=== PATIENT | female | born 1990 | race Caucasian/White ===

== ENCOUNTER 2018-01-21 16:14 | Inpatient (IN) | payer OTHER ==
[~2018-01-21] VITALS: Ht 170.2 cm; Wt 98.2 kg
[2018-01-21] MEDS ORDERED: LACTATED RINGER'S 1000ML 1,000 ML IV PRN (16:48)
[2018-01-21] MEDS ORDERED: LABETALOL HCL 100 MG TAB PO ONE (17:00)
[2018-01-21 17:01] LABS: BASO % 0.2 %; BASO ABS # 0.02 K/uL (0-0.2); EOS % 0.8 %; EOS ABS # 0.08 K/uL (0-0.5); HEMATOCRIT 40.2 % (37-47); HEMOGLOBIN 14.3 g/dL (12.0-16.0); IG# 0.05 K/uL (0.00-0.02); LYMPH % 15.5 %; LYMPH ABS # 1.57 K/uL (1.2-3.4); MEAN CELL VOLUME 93.9 fL (80-100); MEAN CORPUSCULAR HEMOGLOBIN 33.4 pg (25-34); MEAN CORPUSCULAR HGB CONC 35.6 g/dl (32-36); MEAN PLATELET VOLUME 12.3 fL (7.4-10.4); MONO % 5.2 %; MONO ABS # 0.53 K/uL (0.11-0.59); NEUT % 77.8 %; NEUT ABS # 7.86 K/uL (1.4-6.5); PLATELET COUNT 215 K/uL (130-400); RED CELL DISTRIBUTION WIDTH CV 12.8 % (11.5-14.5); RED CELL DISTRIBUTION WIDTH SD 43.6 fL (36.4-46.3); WHITE BLOOD COUNT 10.11 K/uL (4.8-10.8)
[2018-01-21] MEDS ORDERED: DINOPROSTONE 10 MG INSERT PV ONE (17:15)
[2018-01-21 17:23] LABS: ALBUMIN 2.8 gm/dl (3.4-5.0); ALT/SGPT 24 U/L (12-78); AST/SGOT 25 U/L (15-37); BLOOD UREA NITROGEN 8 mg/dl (7-18); CALCIUM 8.4 mg/dl (8.5-10.1); CARBON DIOXIDE 23 mmol/L (21-32); CREATININE 0.91 mg/dl (0.60-1.20); GLUCOSE 69 mg/dl (70-99); POTASSIUM 3.8 mmol/L (3.5-5.1); SODIUM 138 mmol/L (136-145)
[2018-01-21 17:26] LABS: ALKALINE PHOSPHATASE 190 U/L (45-117); TOTAL PROTEIN 6.8 gm/dl (6.4-8.2)
[2018-01-21] MEDS ORDERED: PRENTAB26 PO (18:34)
[2018-01-21 18:38] VITALS: Ht 170.2 cm; Wt 98.2 kg
[2018-01-21] MEDS: LABETALOL HCL 100 MG TAB PO SCH ×2 (22:00→23:09)
[2018-01-21] MEDS: LACTATED RINGER'S 1000ML 1,000 ML IV SCH (23:11)
[2018-01-22] MEDS ORDERED: NURSING VERBAL MED ORDER ONE ×2 (02:15→21:00)
[2018-01-22] MEDS ORDERED: BUTORPHANOL TARTRATE 1 MG/ML VIAL IV ONE (02:30)
[2018-01-22] MEDS ORDERED: BUPIVACAINE 0.25% 30 ML VIAL ONE (02:54)
[2018-01-22] MEDS ORDERED: EpHEDrine SULFATE INJ 50 MG/ML AMP ONE (02:54)
[2018-01-22] MEDS ORDERED: FENTANYL CITRATE INJ 50 MCG/1 ML 2 ML VIAL ONE (02:55)
[2018-01-22] MEDS ORDERED: FENTANYL 2MCG/ML ROPIV 1.25MG/ML 100ML BAG ONE (02:55)
[2018-01-22] MEDS ORDERED: NALOXONE HCL INJ 1 MG in SODIUM CHLORIDE 0.9% 1000ML 1,000 ML IV PRN (04:13)
[2018-01-22] MEDS ORDERED: LACTATED RINGER'S 1000ML 500 ML IV PRN (04:13)
[2018-01-22] MEDS ORDERED: EpHEDrine SULFATE INJ 50 MG/ML AMP IV PRN (04:15)
[2018-01-22] MEDS ORDERED: NALOXONE HCL INJ 0.4 MG/1 ML VIAL/CARP IV PRN (04:15)
[2018-01-22] MEDS ORDERED: DiphenhydrAMINE HCL 50 MG/ML VIAL IV PRN (04:15)
[2018-01-22] MEDS ORDERED: FENTANYL 2MCG/ML ROPIV 1.25MG/ML 100ML BAG EPI PRN (04:15)
[2018-01-22] MEDS ORDERED: NALBUPHINE HCL INJ 10 MG/ML AMP IV PRN (04:15)
[2018-01-22] MEDS ORDERED: D5W AND LACTATED RINGERS 1,000 ML IV SCH (06:30)
[2018-01-22] MEDS: LABETALOL HCL 100 MG TAB PO SCH ×2 (07:42→20:11)
[2018-01-22] MEDS ORDERED: OXYTOCIN 30 UNITS/500ML NSS IV ONE (09:54)
[2018-01-22] MEDS: LACTATED RINGER'S 1000ML 1,000 ML IV SCH (10:04)
[2018-01-22] MEDS ORDERED: LACTATED RINGER'S 1000ML 1,000 ML IV SCH ×2 (12:34→21:15)
--- NOTE | 2018-01-22 12:40 | Anesthesia Procedure Note ---
Anesthesia Epidural Removal Nt Date & Time January 22, 2018 at 12:40 Vital Signs Pain Intensity: 0.0 Notes Mental Status: alert / awake / arousable, participated in evaluation Nausea / Vomiting: adequately controlled Pain: adequately controlled Airway Patency, RR, SpO2: stable & adequate BP & HR: stable & adequate Hydration State: stable & adequate Neuraxial Anesthesia: was administered Anesthetic Complications: no major complications apparent, pt satisfied with anesthetic care Epidural: removed without complications, with tip intact
[2018-01-22] MEDS ORDERED: HYDROCORTISONE ACETATE 25 MG SUPP PR PRN (12:45)
[2018-01-22] MEDS ORDERED: LANOLIN OINT EXT PRN (12:45)
[2018-01-22] MEDS ORDERED: MEASLES, MUMPS & RUBELLA VIRUS VIAL SQ. ONE (12:45)
[2018-01-22] MEDS ORDERED: SUPERCREAM 0.870 % 15GM JAR EXT PRN (12:45)
[2018-01-22] MEDS ORDERED: ACETAMINOPHEN 325 MG TAB PO PRN (12:45)
[2018-01-22] MEDS ORDERED: DIPHTHERIA/TETANUS/PERTUSSIS 0.5 ML SYR/VIAL IM. ONE (12:45)
[2018-01-22] MEDS ORDERED: BENZOCAINE 20% AER SPR 82.5 GM CAN EXT PRN (12:45)
--- NOTE | 2018-01-22 12:45 | Vaginal Delivery Summary ---
Vaginal Delivery Summary Delivery Note live female over intact perineum JUANJOSE Apgars 9/10. CANx3 loose removed on perineum. Delayed cord clamping followed by cord blood and spontaneous delivery of intact placenta. EBL 250 ml. Final sponge and instrument count are correct. Mom and baby stable.
[2018-01-22 16:15] VITALS: BP 126/83; PULSE 106; TEMP 36.7; O2SAT 97
[2018-01-22 20:00] VITALS: BP 137/85; PULSE 110; TEMP 36.7
[2018-01-22] MEDS: IBUPROFEN 600 MG TAB PO PRN (21:07)
[2018-01-22 23:40] VITALS: BP 123/88; PULSE 96; TEMP 37.1; O2SAT 97
[2018-01-23 03:35] VITALS: BP 136/89; PULSE 103; TEMP 37; O2SAT 99
--- NOTE | 2018-01-23 07:08 | OB/GYN Progress Note ---
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 Subjective conversation w/ patient, physical exam Ambulation: ambulating normally Voiding: no voiding problems Passing Gas: Yes Diet Tolerance: Regular Diet Lochia: Moderate Pain: 2/10 Notes: Doing well, no concerns. Pain well controlled. Tolerating regular diet. Ambulating without difficulty. Objective Vital Signs Date Time Temp Pulse Resp B/P (MAP) Pulse Ox O2 Delivery O2 Flow Rate FiO2 01/23/18 03:35 37.0 103 18 136/89 (105) 99 Room Air 01/22/18 23:40 97 Room Air 01/22/18 23:40 37.1 96 18 123/88 (100) 97 Room Air 01/22/18 20:00 36.7 110 18 137/85 (102) Room Air 01/22/18 16:15 97 Room Air 01/22/18 16:15 36.7 106 18 126/83 (97) 97 Room Air Physical Exam General Appearance: WELL-APPEARING Respiratory/Chest: chest non-tender, lungs clear Cardiovascular: regular rate, rhythm Abdomen: normal bowel sounds, soft Fundus: Firm Extremities: normal range of motion, non-tender, no calf tenderness Laboratory Results Last 24 Hours Test 01/23/18 04:44 Assessment and Plan Post- Day Number: 1 Continue Routine Care: -Continue routine care -Anticipate D/C home tomorrow AM
[2018-01-23 08:50] VITALS: BP 130/96; PULSE 99; O2SAT 99
[2018-01-23] MEDS: PRENATAL VITAMIN TAB PO SCH (08:57)
[2018-01-23] MEDS: LABETALOL HCL 100 MG TAB PO SCH ×2 (08:57→20:06)
[2018-01-23] MEDS: FERROUS SULFATE 325 MG TAB PO SCH (08:57)
[2018-01-23] MEDS: IBUPROFEN 600 MG TAB PO PRN (08:58)
[2018-01-23 09:09] LABS: HEMATOCRIT 33.4 % (37-47); HEMOGLOBIN 11.8 g/dL (12.0-16.0)
[2018-01-23 12:55] VITALS: BP 134/84; PULSE 94; TEMP 36.8; O2SAT 98
[2018-01-23 16:00] VITALS: BP 133/91; PULSE 94; TEMP 36.8
[2018-01-23] MEDS ORDERED: BISACODYL 5 MG TABEC PO SCH (20:00)
[2018-01-23 20:05] VITALS: BP 136/84; PULSE 105; TEMP 36.8
[2018-01-23 23:55] VITALS: BP 130/83; PULSE 106; TEMP 36.8
[2018-01-24] MEDS ORDERED: BISACODYL 10 MG SUPP PR PRN (07:00)
[2018-01-24] MEDS ORDERED: LBT100 PO (07:42)
--- NOTE | 2018-01-24 07:42 | OB/GYN Progress Note ---
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 Patient is seen and examined. She feels well, no complaints. Ambulating without dizziness Voiding without difficulty Tolerating regular diet with out N&V Bleeding is minimal No fever/ chills/ CP/ SOB/ N&V/ Leg pain Breast feeding without problems Date Time Temp Pulse Resp B/P (MAP) Pulse Ox O2 Delivery O2 Flow Rate FiO2 01/23/18 23:55 Room Air 01/23/18 23:55 36.8 106 18 130/83 (99) Room Air 01/23/18 20:05 36.8 105 18 136/84 (101) Room Air 01/23/18 16:00 36.8 94 16 133/91 (105) Room Air 01/23/18 16:00 Room Air 01/23/18 12:55 36.8 94 20 134/84 (101) 98 Room Air 01/23/18 08:50 99 18 130/96 (107) 99 Room Air 01/23/18 08:50 99 Room Air Last 24 Hours Test 01/23/18 08:52 Hemoglobin 11.8 g/dL Hematocrit 33.4 % PE: General: Alert, orientedx3, NAD Abd: soft, NT, fundus firm, below Umbilicus Perineum intact, Lochia rubra minimal Ext; NT, no edema AP: 28 yo s/p , IOL for preeclampsia, ppd# 2 VSS Afebrile doing well, on Labetalol Continue routine care Instructions were given when to call All questions were answered D/C home , f/u in office in a week
--- NOTE | 2018-01-24 07:43 | Discharge Instructions ---
Discharge Instructions Date of Service January 24, 2018. Admission Reason for Admission: Blood Pressure Monitering, Possible Preeclampsia Discharge Discharge Diagnosis / Problem: Discharge Goals Goal(s): Routine recovery after delivery Medications Continue Dispensed Medications: lansinoh Activity Recommendations Activity Limitations: as noted below ACTIVITY RECOMMENDATIONS: * Gradual return to full activity over the next 2-3 weeks. * No lifting - nothing heavier than baby over the next 2-3 weeks. * Do not engage in vigorous exercise, sexual activity or sports until cleared by your physician. * Do not drive or operate any motorized equipment until cleared by your physician. * You may shower/bathe daily. BREAST CARE: If you are not breast feeding: * Wear a supportive bra 24 hours a day for one to two weeks. * Avoid stimulating your breasts and nipples as much as possible during the first few weeks after delivery. * When taking a shower, have the warm water hit your back, not breasts. * When your breasts feel full, apply ice packs. Usually three to four times a day helps ease the discomfort. * Take a mild pain medication (Tylenol/Motrin) when you are uncomfortable. If breast feeding: * Use breast milk to lubricate nipples. Lansinoh cream may be used for sore nipples. You do not need to remove cream prior to breast feeding. If using a different brand of cream, check the label for directions regarding removal of cream prior to nursing. * Wear a supportive bra. * If having problems with breasts or breast feeding, call a practice management consultant or your health care provider. EPISIOTOMY CARE: After delivery, if you have an episiotomy (stitches), the following steps will ease discomfort and aid healing. * For the first 24 hours after delivery, place ice packs next to your episiotomy to help reduce swelling. * After the first 24 hour-period, sitz baths, either portable or in the tub, are suggested. A shower with a shower arm sprayed over the episiotomy may be comforting. * Sofya care should be done after each voiding and bowel movement. Squirt warm water from a plastic bottle over the perineum (region of the body between the anus and urinary opening) and pat dry. * Use Dermoplast to ease discomfort. Shake container. [place] directly over the episiotomy. * Place a Tucks on a clean sanitary pad next to your episiotomy. OVER THE COUNTER MEDICATION: * For discomfort or pain, you may use Acetaminophen (Tylenol), Ibuprofen (Advil ), or Naproxen (Aleve) following the package directions. * For constipation you may use Colace following the package directions. SPECIAL CARE INSTRUCTIONS: When you are discharged from the hospital, it is important for you to follow the instructions listed below: * During the first week at home, you should be able to care for yourself and your baby. In addition, the usual light household activities are encouraged. * Limit your activities to the way you feel. Do not try to clean the house or move furniture. Be sensible. * If you actively engage in sports and have done so up until the time of your delivery, you may resume these activities as soon as you feel able. This may take up to one month or even longer. Use good judgment. * Continue to take your vitamins for at least six weeks after the of your baby. * Your diet need not be limited unless you were on a special diet before your delivery. Breast-feeding mothers need around 2500 calories per day and at least 64-80 ounces of fluid per day (8 to 10 glasses). * You should eat foods from the four major food groups. Crash diets or fad diets are to be avoided. Eating lean meats, fresh fruits and vegetables, low-fat dairy products, high fiber foods and a regular exercise program, will help you get back to your pre- weight without putting your health at risk. * Constipation is sometimes a problem after delivery. Take a mild laxative as needed. If breast feeding, Milk of Magnesia is acceptable to use. You may use a suppository or Fleets enema if no episiotomy. * A daily shower or tub bath is suggested. Be sure to thoroughly and gently dry the perineum. * A bloody vaginal discharge will usually continue until around four weeks post . A small amount of bleeding may continue for as long as six weeks. Vaginal discharge changes from the bright red bleeding after delivery to pink then brownish and finally yellowish-pink before becoming white and disappearing. * Bleeding may increase with activity. Your first period may come in 4-8 weeks. If you are breast feeding, your period may be delayed even longer. * Bowlus (sex) can begin whenever both you and your partner feel comfortable and do not have any form of genital infection. It is recommended that you wait until after your return appointment and discuss with your physician. If you have questions, please talk to your health care practitioner. A condom should be used to prevent infection and . * Foreplay, gentle intercourse and lubrication is very important the first several times to prevent pain. A water-based lubricant such as K-Y jelly or Astroglide may be used. * Tampons may be used six weeks after delivery. * Douching should be avoided for 6 weeks after delivery. * If you have RH negative blood and your baby is RH positive, you will receive RHOGAM by injection prior to discharge. The nurse will give you a card to keep with you that has the date and place that you received RHOGAM after delivery. * During your care, you had a Rubella screen done to check for the presence of rubella antibodies in your blood. If your test was negative, you will receive a Rubella vaccine prior to discharge. This vaccine may cause a fever, soreness at the injection site and flu-like symptoms. If these symptoms persist, notify your health care practitioner. is not advised for three months after a Rubella vaccine. There is a higher chance of having a baby with defects if conceived within three months of getting the vaccine. * If you were discharged 24 hours from delivery or before 48 hours: Visiting nurses will come to your home 48 hours after discharge to assess you and your baby. The visiting nurse will meet with you while you are in the hospital to arrange a time and get directions to your home. * Verbalizes understanding of car seat law as reviewed with patient nursing. * Car Seat hand-out given and reviewed with patient by nursing. * Shaken baby information reviewed with patient by nursing. Call you doctor if: * Heavy bleeding (saturating several pads an hour) or passing clots the size of your fist. * A fever >101 degrees F (38.3 degrees C) on two occasions four hours apart and/or chills. * Unusual pain in the pelvic or vaginal areas. * "Baby Blues" lasting longer than two weeks. If you have any questions or concerns, call your health care practitioner at . FOLLOW-UP VISIT: * Please call the office at to schedule a 6 week examination. It is important you keep this appointment. * It is important for you to make arrangements for either yearly or twice yearly check-ups thereafter. . Current Hospital Diet Patient's current hospital diet: Regular OB Diet Discharge Diet Recommended Diet: Regular Diet Pending Studies Studies pending at discharge: no Medical Emergencies . Who to Call and When: Medical Emergencies: If at any time you feel your situation is an emergency, please call 911 immediately. . Non-Emergent Contact Non-Emergency issues call your: Specialist Call Non-Emergent contact if: temperature is above 100.5, your pain is not controlled, your pain is worsening, your pain is unusual for you . . "Provider Documentation" section prepared by Hafsa Sanabria. .
[2018-01-24 07:57] VITALS: BP 130/80; PULSE 88; TEMP 36.9
[2018-01-24] MEDS: LABETALOL HCL 100 MG TAB PO SCH (09:41)
[2018-01-24] MEDS: IBUPROFEN 600 MG TAB PO PRN (09:41)
[2018-01-24] MEDS: FERROUS SULFATE 325 MG TAB PO SCH (09:42)
[2018-01-24] MEDS: PRENATAL VITAMIN TAB PO SCH (09:42)
[2018-01-24 13:08] VITALS: BP_DIAS 80; PULSE 88; TEMP 36.9
== END 2018-01-24 14:30 | disposition home or self-care (01) | DRG 775 ==
LOC: C.OPB 16:14 → C.LD 16:14 → C.OPB 16:49 → C.LD 16:49 → C.OBG 01-22 16:19
PROVIDERS: ADMIT Obstetrics & Gynecology; ATTEND Obstetrics & Gynecology
PROC: 3E0P7GC Introduction of Other Therapeutic Substance into Female Reproductive, Via Natural or Artificial Opening (ICD-10-PCS; 2018-01-21)
PROC: 10E0XZZ Delivery of Products of Conception, External Approach (ICD-10-PCS; principal; 2018-01-22)
DX: O14.94 Unspecified pre-eclampsia, complicating childbirth (principal); O69.81X0 Labor and delivery complicated by cord around neck, without compression, not applicable or unspecified; O13.4 Gestational [pregnancy-induced] hypertension without significant proteinuria, complicating childbirth; Z37.0 Single live birth; Z3A.38 38 weeks gestation of pregnancy

== ENCOUNTER 2021-03-11 11:50 | Inpatient (IN) ==
[2021-03-11] MEDS ORDERED: PENICILLIN G POTASSIUM 6 MU in DEXTROSE 5% 250 ML IV STA (12:48)
[2021-03-11] MEDS ORDERED: OXYTOCIN 30 UNITS/500 ML BAG IV PRN (12:48)
[2021-03-11 13:12] LABS: Hematocrit (blood only) 37.2 % (37-47); Hemoglobin 12.5 g/dL (12.0-16.0); Mean Corpuscular Hemoglobin 29.9 pg (25-34); Mean Corpuscular Hgb Conc 33.6 g/dL (32-36); Mean Platelet Volume 11.6 fL (7.4-10.4); Platelet Count 364 K/uL (130-400); RDW Coefficient of Variation 14.3 % (11.5-14.5); RDW Standard Deviation 46.5 fL (36.4-46.3); Red Blood Count 4.18 M/uL (4.2-5.4); White Blood Count 11.88 K/uL (4.8-10.8)
[2021-03-11 13:31] LABS: Alanine Aminotransferase 21 U/L (12-78); Albumin Level 2.6 gm/dl (3.4-5.0); Aspartate Aminotransferase 21 U/L (15-37); BUN Creatinine Ratio 12.1 (10-20); Blood Urea Nitrogen 10 mg/dl (7-18); Calcium 9.8 mg/dl (8.5-10.1); Carbon Dioxide 20 mmol/L (21-32); Chloride 107 mmol/L (98-107); Creatinine Clr Calc Pharmacy 121.6 ml/min; Est GFR (African American) 107.3 ml/min; Est GFR (Non-African American) 92.6 ml/min; Glucose 92 mg/dl (70-99); Potassium 4.1 mmol/L (3.5-5.1); Sodium 137 mmol/L (136-145)
[2021-03-11 13:34] LABS: Albumin Globulin Ratio 0.6 (0.9-2); Alkaline Phosphatase 172 U/L (45-117); Bilirubin Direct < 0.1 mg/dl (0-0.2); Bilirubin,Total 0.3 mg/dl (0.2-1); Globulin 4.2 gm/dl (2.5-4.0); Total Protein 6.8 gm/dl (6.4-8.2)
[2021-03-11] MEDS ORDERED: DINOPROSTONE 10 MG INSERT PV ONE (14:03)
--- NOTE | 2021-03-11 14:07 | Progress Note ---
Date of Service March 11, 2021 Assessment & Plan Admission and Anticipated Discharge Date Admission Date: March 11, 2021 Subjective Admit Note 31 F P1001 at 39 weeks admitted for induction of labor for gestational hypertension. Denies headache, visual symptoms or any abdominal pain or contractions. No edema or hyper-reflexes. No RUQ pain on exam. Cervix 1/50/- 3/vertex/posterior/firm/intact. EFW 8 lbs. FHT Cat 1. GBS is positive. Covid is negative. Will start induction with Cervidil for cervical ripening. Results & Data ([facility]) Vital Signs (Past 12 Hours) Vital Signs Temp Pulse Resp BP 03/11/21 13:59 122 H 143/86 H 03/11/21 13:30 36.8 C 20 03/11/21 13:04 36.8 C 20 03/11/21 12:59 139 H 134/88
--- NOTE | 2021-03-11 14:15 | Labor Progress Brief Note ---
Date of Service March 11, 2021 Assessment & Plan Admission and Anticipated Discharge Date Admission Date: March 11, 2021 Physical Exam Constitutional: WD/WN, vitals as above comfortable Cervidil 10 mg placed vaginally. Results & Data ([facility]) Vital Signs (Past 12 Hours) Vital Signs Temp Pulse Resp BP 03/11/21 13:59 36.8 C 122 H 18 143/86 H 03/11/21 13:30 36.8 C 20 03/11/21 13:04 36.8 C 20 03/11/21 12:59 139 H 134/88
[2021-03-11] MEDS: CALCIUM CARBONATE 500 MG CHEWABLE TAB PO PRN (14:25)
[2021-03-11] MEDS ORDERED: PENICILLIN G POTASSIUM 3 MU in DEXTROSE 5% 100 ML IV PRN (16:48)
[2021-03-11] MEDS ORDERED: FAMOTIDINE 10 MG TABLET PO ONE (19:00)
[2021-03-12] MEDS: BUTORPHANOL TARTRATE 1 MG/ML VIAL IV PRN ×3 (01:58→06:50)
[2021-03-12] MEDS: LACTATED RINGER'S 1,000 ML IV PRN ×2 (04:19→07:02)
[2021-03-12] MEDS ORDERED: CITRIC ACID/SODIUM CITRATE 15 ML UDC PO SCH (06:00)
--- NOTE | 2021-03-12 07:36 | History & Physical Bridge Note ---
Date of Service March 12, 2021 History & Physical Bridge Note I have examined the patient, reviewed the History & Physical and in the interval since the performance of the History & Physical I have noted the following changes of clinical significance: no changes noted
--- NOTE | 2021-03-12 07:37 | Ultrasound Report ---
US OB limited CLINICAL HISTORY: Term . Need to determine position. COMPARISON STUDY: No previous studies for comparison. FINDINGS: A single portable image is provided for interpretation. This demonstrates a fetus in breech presentation. IMPRESSION: Limited study demonstrating a fetus in breech presentation. ACT 112: Negative or not required by law. Electronically signed by: Brennan Bunch M.D. 03/12/2021 7:36 AM
--- NOTE | 2021-03-12 07:40 | Labor Progress Brief Note ---
Date of Service March 12, 2021 Assessment & Plan Admission and Anticipated Discharge Date Admission Date: March 11, 2021 Physical Exam Constitutional: WD/WN, vitals as above comfortable Genitourinary: OB Exam Abdomen: + breech OB Exam Monitor Tracing: + external FHT monitor used, + external uterine monitor used, + category I and + normal FHT variability Bedside ultrasound confirms breech presentation will consent for Results & Data ([facility]) Vital Signs (Past 12 Hours) Vital Signs Temp Pulse Resp BP 03/12/21 07:33 96 H 154/85 H 03/12/21 07:09 36.7 C 96 H 18 153/100 H 03/12/21 07:05 96 H 153/100 H 03/12/21 07:04 93 H 158/103 H 03/12/21 04:30 36.8 C 16 03/12/21 04:06 103 H 129/74 03/11/21 22:38 36.7 C 100 H 16 135/93 03/11/21 19:42 36.8 C 103 H 16 168/99 H
--- NOTE | 2021-03-12 07:42 | Anesthesiology Consultation ---
Date of Service March 12, 2021 Assessment & Plan (1) Encounter for pre-operative examination: Chart Review Chart Review: Acceptable Risk for Surgery Consults Requested none ASA [id number] Proposed Anesthesia Anesthesia Type: Spinal Risk / Benefits Reviewed With: PT / POA / Parent / Guardian, Accepts Plan and Informed Consent Obtained History Height/Weight Height: 5 ft 7 in Weight: 104.78 kg Allergies Allergy/AdvReac Type Severity Reaction Status Date / Time No Known Allergies Allergy Verified 03/11/21 13:01 Medications Home Medications Medication Instructions Recorded Confirmed Last Taken Multivit/Min/Iron/Fol Ac/Pren 1 tab PO DAILY #0 tab 01/21/18 03/11/21 03/10/21 ( Vitamin) aspirin [Baby Aspirin] 81 mg PO DAILY 03/11/21 03/11/21 03/10/21 Active Medications Generic Name Dose Route Start Last Admin Trade Name Freq PRN Reason Stop Dose Admin Butorphanol Tartrate 1 mg 03/12/21 01:44 03/12/21 06:50 Butorphanol Tartrate 1 Mg/Ml Vial IV 04/11/21 01:43 1 mg Q2HWA PRN Administration Pain Calcium Carbonate 1,500 mg 03/11/21 14:16 03/11/21 14:25 Calcium Carbonate 500 Mg Chewable Tab PO 04/10/21 14:15 1,500 mg Q2H PRN Administration Indigestion Lactated Ringer's 1,000 mls @ 125 mls/hr 03/11/21 12:48 03/12/21 07:02 Lr IV 03/13/21 12:47 125 mls/hr .Q8H PRN Administration L&D Protocol Protocol NPO Date Last Intake of Fluids: 03/12/21 Time Last Intake of Fluids: 06:00 Date Last Intake of Solids: 03/11/21 Time Last Intake of Solids: 11:00 Past Medical History Medical History ADHD Depression HPV (human papilloma virus) infection ASCUS - Colpo Exercise / Class Metabolic Activity II 4-5 Yardwork/Stairs/Walk up hill Past Family History Family History Father Diabetes Hypertension Past Surgical History Surgical History [place] teeth extracted Past Anesthesia History No Hx of Anesthesia Complications and No Family Hx of Anesthesia Complications History of PONV No Hx of PONV and No Hx of Motion Sickness Social History Smoking Status: Never smoker Hx Alcohol Use: No Hx Substance Use: No Physical Exam Vital Signs Last Vital Signs Temp 98.1 F 03/12/21 07:09 Pulse 96 H 03/12/21 07:33 Resp 18 03/12/21 07:09 BP 154/85 H 03/12/21 07:33 ENMT Mouth: no dentition abnormality Thyromental Distance: > or= 3.5 Finger Breadths Mallampati Class: III Neck normal visual inspection Respiratory normal respiratory effort Auscultation: lungs clear to auscultation bilaterally Cardiovascular Rate/Rhythm: regular rate and regular rhythm Testing Laboratory Results 03/11/21 12:58 03/11/21 12:58
[2021-03-12] MEDS ORDERED: MoRPHine SULFATE PF 1 MG/ML 10 ML AMP/VIAL ONE (07:46)
[2021-03-12] MEDS ORDERED: OXYTOCIN 10 UNITS/ML VIAL ONE (07:46)
[2021-03-12] MEDS ORDERED: fentaNYL citrate 100 MCG/2 ML VIAL ONE (07:46)
[2021-03-12] MEDS ORDERED: ceFAZolin 2000MG 2,000 MG/15 ML SYR IV SCH (08:00)
[2021-03-12] MEDS ORDERED: diphenhydrAMINE 50 MG/ML VIAL IV PRN (08:25)
[2021-03-12] MEDS ORDERED: ePHEDrine sulfate 50 MG/ML AMP IV PRN (08:25)
[2021-03-12] MEDS ORDERED: ONDANSETRON INJ 2 MG/ML 2 ML VIAL IV PRN (08:25)
[2021-03-12] MEDS ORDERED: MEPERIDINE HCL 25 MG/ML CARP/VIAL IV PRN (08:25)
[2021-03-12] MEDS ORDERED: LACTATED RINGER'S 500 ML IV PRN (08:25)
[2021-03-12] MEDS ORDERED: MoRPHine SULFATE PF 1 MG/ML 10 ML AMP/VIAL INT SPINAL ONE (08:25)
[2021-03-12] MEDS ORDERED: NALOXONE HCL 0.08 MG in SYRINGE 1.8 ML IV PRN (08:25)
[2021-03-12] MEDS ORDERED: NALOXONE HCL 1 MG in SODIUM CHLORIDE 0.9% 1000ML 1,000 ML IV PRN (08:25)
[2021-03-12] MEDS ORDERED: NALOXONE HCL 0.4 MG/1 ML VIAL/CARP IV PRN (08:25)
[2021-03-12] MEDS ORDERED: NO NARCOTICS OR SEDATIVES SCH (08:30)
[2021-03-12] MEDS ORDERED: SODIUM CHLORIDE 0.9% 1000ML 1,000 ML IV SCH (08:30)
[2021-03-12] MEDS ORDERED: LACTATED RINGER'S 1,000 ML IV SCH ×2 (08:35→09:29)
[2021-03-12] MEDS ORDERED: ONDANSETRON INJ 2 MG/ML 2 ML VIAL ONE (08:50)
--- NOTE | 2021-03-12 09:07 | Post Operative Brief Note ---
Immediate Post Op Note v1 Date of Surgery March 12, 2021 Pre & Post Diagnosis Operation Date: 03/12/21 08:00 Pre-Op Diagnosis: Breech presentation, lower transverse uterine section, EBL 500 Post-Op Diagnosis: Breech presentation, lower transverse uterine section, EBL 500 I identified the patient and participated in the time-out.: Yes Procedure Operation Date: 03/12/21 08:00 Actual Procedures p Section in LD LIVE FEMALE CHILD AT 0837 IN OR 3 - Tj Bhatti MD Surgeon Tj Bhatti MD Colorist Formulator Dr Arreguin Estimated Blood Loss 500 Findings Consistent with Post-Op Diagnosis live female yannick breech Apgars 8/9 nuchal cord x1 Fluids LR 800ml Specimens cord blood placenta Drains [place] Catheter Anesthesia Type Spinal Complications none Disposition Accompanied Patient To Recovery: Yes Disposition: L&D Overlapping Procedure I was present for: the critical portions of procedure. I was immediately available: during the entire case. Back up surgeon: used during listed procedure.
[2021-03-12] MEDS ORDERED: BENZOCAINE 20% AER SPR 82.5 GM CAN EXT PRN (09:29)
[2021-03-12] MEDS ORDERED: MAGNESIUM HYDROXIDE SUSP 30 ML UDC PO PRN (09:29)
[2021-03-12] MEDS ORDERED: DIPHTHERIA/TETANUS/PERTUSSIS 0.5 ML SYR/VIAL IM ONE (09:29)
[2021-03-12] MEDS ORDERED: SUPERCREAM 0.870% 15 GM JAR EXT PRN (09:29)
[2021-03-12] MEDS ORDERED: HYDROCORTISONE ACETATE 25 MG SUPP PR PRN (09:29)
[2021-03-12] MEDS ORDERED: SENNA 8.6 MG TAB PO PRN (09:29)
[2021-03-12] MEDS: CALCIUM CARBONATE 500 MG CHEWABLE TAB PO PRN (09:40)
--- NOTE | 2021-03-12 09:46 | Anesthesiology Progress Note ---
Date of Service March 12, 2021 Anesthesia Post Procedure Vital Signs Vital Signs: Temp Pulse Resp BP Pulse Ox 03/12/21 09:44 89 100 03/12/21 09:40 88 127/79 03/12/21 09:39 91 H 100 03/12/21 09:34 99 H 99 03/12/21 09:30 96 H 117/65 03/12/21 09:29 105 H 100 03/12/21 09:25 97.5 F L 110 H 20 132/71 100 03/12/21 09:24 107 H 100 03/12/21 09:20 115 H 132/71 03/12/21 09:19 115 H 100 03/12/21 07:33 96 H 154/85 H 03/12/21 07:09 98.1 F 96 H 18 153/100 H 03/12/21 07:05 96 H 153/100 H 03/12/21 07:04 93 H 158/103 H 03/12/21 04:30 98.2 F 16 03/12/21 04:06 103 H 129/74 03/11/21 22:38 98.1 F 100 H 16 135/93 03/11/21 19:42 98.2 F 103 H 16 168/99 H 03/11/21 15:15 98.2 F 111 H 18 132/85 03/11/21 13:59 98.2 F 122 H 18 143/86 H 03/11/21 13:30 98.2 F 20 03/11/21 13:04 98.2 F 20 03/11/21 12:59 139 H 134/88 Pain Intensity Bilateral Abdomen: Pain Intensity: 5 Transfer of Care Handoff Completed per policy Notes Mental Status: alert / awake / arousable and participated in evaluation Patient Amnestic to Procedure: Yes Nausea / Vomiting: adequately controlled Pain: adequately controlled Airway Patency, RR, SpO2: stable & adequate BP & HR: stable & adequate Hydration State: stable & adequate Neuraxial Anesthesia: was administered and sensory block is resolving Anesthetic Complications: no major complications apparent and Pt Satisfied with anesthetic care
[2021-03-12] MEDS: OXYTOCIN 30 UNITS in LACTATED RINGER'S 1,000 ML IV SCH ×2 (10:04→18:21)
[2021-03-12] MEDS: KETOROLAC 30 MG/ML VIAL IV PRN ×2 (11:47→20:40)
[2021-03-12] MEDS: SIMETHICONE 80 MG CHEW PO SCH ×2 (17:58→20:39)
[2021-03-12] MEDS: DOCUSATE SODIUM 100 MG CAP PO SCH (20:39)
[2021-03-13] MEDS: KETOROLAC 30 MG/ML VIAL IV PRN (02:22)
[2021-03-13] MEDS ORDERED: PROMETHAZINE HCL 25 MG in SODIUM CHLORIDE 0.9% 50 ML IV PRN (02:25)
[2021-03-13] MEDS ORDERED: diphenhydrAMINE Capsule 25 MG CAP PO PRN (02:25)
[2021-03-13] MEDS ORDERED: diphenhydrAMINE 50 MG/ML VIAL IV PRN (02:25)
[2021-03-13] MEDS ORDERED: DC INTRASPINAL MORPHINE ONE (02:25)
[2021-03-13] MEDS ORDERED: ONDANSETRON INJ 2 MG/ML 2 ML VIAL IV PRN (02:25)
[2021-03-13 05:55] LABS: Basophils # (auto) 0.02 K/uL (0-0.2); Basophils % (auto) 0.2 %; Eosinophils # (auto) 0.09 K/uL (0-0.5); Eosinophils % (auto) 0.7 %; Hematocrit (blood only) 33.5 % (37-47); Hemoglobin 10.8 g/dL (12.0-16.0); Immature Granulocytes # (auto) 0.04 K/uL (0.00-0.02); Immature Granulocytes % (auto) 0.3 %; Lymphocytes # (auto) 1.57 K/uL (1.2-3.4); Lymphocytes % (auto) 12.4 %; Mean Corpuscular Hemoglobin 29.4 pg (25-34); Mean Corpuscular Hgb Conc 32.2 g/dL (32-36); Mean Corpuscular Volume 91.3 fL (80-100); Mean Platelet Volume 11.2 fL (7.4-10.4); Monocytes # (auto) 0.76 K/uL (0.11-0.59); Neutrophils # (auto) 10.15 K/uL (1.4-6.5); Neutrophils % (auto) 80.4 %; Platelet Count 248 K/uL (130-400); RDW Coefficient of Variation 14.4 % (11.5-14.5); RDW Standard Deviation 47.9 fL (36.4-46.3); Red Blood Count 3.67 M/uL (4.2-5.4); White Blood Count 12.63 K/uL (4.8-10.8)
[2021-03-13] MEDS ORDERED: ACETAMINOPHEN 325 MG TAB PO PRN (08:57)
[2021-03-13] MEDS ORDERED: NON-FORMULARY MEDICATION (Multivit/Min/Iron/Fol Ac/Pren (Prenatal Vitamin) tablet) PO SCH (09:00)
--- NOTE | 2021-03-13 09:05 | Obstetrical Progress Note ---
Date of Service March 13, 2021 Assessment & Plan Admission and Anticipated Discharge Date Admission Date: March 11, 2021 Subjective Patient is seen and examined. She feels well, no complaints. Pain is under control with oral meds. Ambulating without dizziness Voiding without difficulty Tolerating regular diet with out N&V Flatus + BM none Bleeding is minimal No fever/ chills/ CP/ SOB/ N&V/ Leg pain Breast feeding without problems Vital Signs Temp Pulse Pulse Resp BP BP Pulse Ox 03/13/21 04:55 37.0 C 98 H 18 123/80 99 03/13/21 02:25 16 96 03/13/21 01:25 16 96 03/13/21 00:30 36.9 C 96 H 18 124/81 97 03/12/21 23:25 18 97 03/12/21 22:25 16 96 03/12/21 21:25 16 96 03/12/21 20:25 18 96 03/12/21 19:30 37.1 C 91 H 16 131/95 98 03/12/21 19:25 16 98 03/12/21 18:25 18 100 03/12/21 17:25 18 99 03/12/21 16:25 16 100 03/12/21 15:25 36.8 C 90 16 138/85 100 03/12/21 15:19 100 H 98 03/12/21 15:14 91 H 98 03/12/21 15:09 95 H 98 03/12/21 15:04 93 H 96 03/12/21 14:59 98 H 97 03/12/21 14:54 89 99 03/12/21 14:49 96 H 98 03/12/21 14:44 93 H 98 03/12/21 14:39 93 H 99 03/12/21 14:34 94 H 99 03/12/21 14:29 89 99 03/12/21 14:24 97 H 99 03/12/21 14:19 97 H 100 03/12/21 14:14 92 H 98 03/12/21 14:09 95 H 99 03/12/21 14:04 102 H 100 03/12/21 13:59 95 H 100 03/12/21 13:58 95 H 129/63 03/12/21 13:55 18 03/12/21 13:54 105 H 100 03/12/21 13:49 88 100 03/12/21 13:44 95 H 100 03/12/21 13:39 97 H 100 03/12/21 13:34 94 H 98 03/12/21 13:29 94 H 100 03/12/21 13:24 94 H 99 03/12/21 13:19 101 H 100 03/12/21 13:14 108 H 99 03/12/21 13:09 79 97 03/12/21 13:04 97 H 99 03/12/21 12:59 95 H 100 03/12/21 12:55 18 03/12/21 12:54 96 H 99 03/12/21 12:53 90 138/66 03/12/21 12:49 94 H 100 03/12/21 12:44 94 H 98 03/12/21 12:39 80 98 03/12/21 12:34 94 H 98 03/12/21 12:32 93 H 133/75 03/12/21 12:29 100 H 99 03/12/21 12:24 95 H 97 03/12/21 12:19 85 97 03/12/21 12:14 96 H 98 03/12/21 12:09 83 97 03/12/21 12:04 89 98 03/12/21 12:02 99 H 129/75 03/12/21 11:59 90 98 03/12/21 11:55 18 03/12/21 11:54 100 H 97 03/12/21 11:49 83 98 03/12/21 11:44 90 98 03/12/21 11:39 95 H 99 03/12/21 11:34 92 H 100 03/12/21 11:32 90 116/67 03/12/21 11:29 93 H 100 03/12/21 11:25 37.0 C 18 03/12/21 11:24 100 H 99 03/12/21 11:19 83 99 03/12/21 11:14 91 H 100 03/12/21 11:09 92 H 99 03/12/21 11:04 80 100 03/12/21 11:02 83 124/69 03/12/21 10:59 82 99 03/12/21 10:55 18 03/12/21 10:54 85 100 03/12/21 10:49 92 H 100 03/12/21 10:44 96 H 99 03/12/21 10:39 92 H 100 03/12/21 10:34 93 H 100 03/12/21 10:31 96 H 106/70 03/12/21 10:29 95 H 99 03/12/21 10:26 18 03/12/21 10:25 18 03/12/21 10:24 100 H 98 03/12/21 10:20 90 121/74 03/12/21 10:19 96 H 98 03/12/21 10:15 18 03/12/21 10:14 95 H 98 03/12/21 10:10 96 H 119/56 L 03/12/21 10:09 95 H 98 03/12/21 10:05 18 03/12/21 10:04 96 H 98 03/12/21 10:00 101 H 116/67 03/12/21 09:59 104 H 98 03/12/21 09:58 106 H 91 03/12/21 09:55 18 03/12/21 09:54 104 H 99 03/12/21 09:53 103 H 128/61 03/12/21 09:49 87 99 03/12/21 09:45 18 03/12/21 09:44 89 100 03/12/21 09:40 88 127/79 03/12/21 09:39 91 H 100 03/12/21 09:35 18 03/12/21 09:34 99 H 99 03/12/21 09:30 96 H 117/65 03/12/21 09:29 105 H 100 03/12/21 09:25 36.4 C L 110 H 20 132/71 100 03/12/21 09:24 107 H 100 03/12/21 09:20 115 H 132/71 03/12/21 09:19 115 H 100 Intake and Output 03/12/21 03/13/21 03/13/21 22:59 06:59 14:59 Intake Total 1003 / 1305.083 Output Total 2600 / 2750 Balance 1003 / -1444.917 -2600 / -1444.917 Intake: IV 1003 / 1305.083 Oxytocin 30 units In Lactated 1003 / 1003 Ringer's 1,000 ml @ 125 mls/hr IV .Q8H2M [facility] Rx#:[id number] Output: Urine 600 / 600 Urine Amount (Catheter) 1999 Valdivia/Indwelling 1999 Lab Results 03/11/21 03/11/21 03/11/21 Range/Units 12:58 12:58 12:58 WBC 11.88 H (4.8-10.8) K/uL RBC 4.18 L (4.2-5.4) M/uL Hgb 12.5 (12.0-16.0) g/dL Hct 37.2 (37-47) % MCV 89.0 (80-100) fL MCH 29.9 (25-34) pg MCHC 33.6 (32-36) g/dL RDW Std Deviation 46.5 H (36.4-46.3) fL RDW Coeff of Hoa 14.3 (11.5-14.5) % Plt Count 364 (130-400) K/uL MPV 11.6 H (7.4-10.4) fL Immature Gran % (Auto) % Neut % (Auto) % Lymph % (Auto) % [place] % (Auto) % Eos % (Auto) % Baso % (Auto) % Neut # (Auto) (1.4-6.5) K/uL Lymph # (Auto) (1.2-3.4) K/uL [place] # (Auto) (0.11-0.59) K/uL Eos # (Auto) (0-0.5) K/uL Baso # (Auto) (0-0.2) K/uL Immature Gran # (Auto) (0.00-0.02) K/uL Sodium 137 (136-145) mmol/L Potassium 4.1 (3.5-5.1) mmol/L Chloride 107 (98-107) mmol/L Carbon Dioxide 20 L (21-32) mmol/L Anion Gap 10.0 (3-11) BUN 10 (7-18) mg/dl Creatinine 0.85 (0.6-1.2) mg/dl Est Cr Clr Drug Dosing 121.6 ml/min Est GFR ( Amer) 107.3 ml/min Est GFR (Non-Af Amer) 92.6 ml/min BUN/Creatinine Ratio 12.1 (10-20) Glucose 92 (70-99) mg/dl Calcium 9.8 (8.5-10.1) mg/dl Total Bilirubin 0.3 (0.2-1) mg/dl Direct Bilirubin < 0.1 (0-0.2) mg/dl AST 21 (15-37) U/L ALT 21 (12-78) U/L Alkaline Phosphatase 172 H (45-117) U/L Total Protein 6.8 (6.4-8.2) gm/dl Albumin 2.6 L (3.4-5.0) gm/dl Globulin 4.2 H (2.5-4.0) gm/dl Albumin/Globulin Ratio 0.6 L (0.9-2) Blood Type A Positive Antibody Screen NEGATIVE 03/13/21 Range/Units 05:47 WBC 12.63 H (4.8-10.8) K/uL RBC 3.67 L (4.2-5.4) M/uL Hgb 10.8 L (12.0-16.0) g/dL Hct 33.5 L (37-47) % MCV 91.3 (80-100) fL MCH 29.4 (25-34) pg MCHC 32.2 (32-36) g/dL RDW Std Deviation 47.9 H (36.4-46.3) fL RDW Coeff of Hoa 14.4 (11.5-14.5) % Plt Count 248 (130-400) K/uL MPV 11.2 H (7.4-10.4) fL Immature Gran % (Auto) 0.3 % Neut % (Auto) 80.4 % Lymph % (Auto) 12.4 % [place] % (Auto) 6.0 % Eos % (Auto) 0.7 % Baso % (Auto) 0.2 % Neut # (Auto) 10.15 H (1.4-6.5) K/uL Lymph # (Auto) 1.57 (1.2-3.4) K/uL [place] # (Auto) 0.76 H (0.11-0.59) K/uL Eos # (Auto) 0.09 (0-0.5) K/uL Baso # (Auto) 0.02 (0-0.2) K/uL Immature Gran # (Auto) 0.04 H (0.00-0.02) K/uL Sodium (136-145) mmol/L Potassium (3.5-5.1) mmol/L Chloride (98-107) mmol/L Carbon Dioxide (21-32) mmol/L Anion Gap (3-11) BUN (7-18) mg/dl Creatinine (0.6-1.2) mg/dl Est Cr Clr Drug Dosing ml/min Est GFR ( Amer) ml/min Est GFR (Non-Af Amer) ml/min BUN/Creatinine Ratio (10-20) Glucose (70-99) mg/dl Calcium (8.5-10.1) mg/dl Total Bilirubin (0.2-1) mg/dl Direct Bilirubin (0-0.2) mg/dl AST (15-37) U/L ALT (12-78) U/L Alkaline Phosphatase (45-117) U/L Total Protein (6.4-8.2) gm/dl Albumin (3.4-5.0) gm/dl Globulin (2.5-4.0) gm/dl Albumin/Globulin Ratio (0.9-2) Blood Type Antibody Screen PE: General: Alert, orientedx3, NAD CVS: S1S2 RRR Lungs; CTAB Abd: soft, NT, ND, BS+, fundus firm, below Umbilicus Incision: Clean, dry, intact Perineum intact, Lochia rubra minimal Ext; NT, no edema AP: 31 yo s/p C Section, pod# 1 VSS Afebrile doing well Continue routine postop care Encourage ambulation, PO intake All questions were answered D/C home tomorrow Results & Data ([facility]) Vital Signs (Past 12 Hours) Vital Signs Temp Pulse Resp BP Pulse Ox 03/13/21 04:55 37.0 C 98 H 18 123/80 99 03/13/21 02:25 16 96 03/13/21 01:25 16 96 03/13/21 00:30 36.9 C 96 H 18 124/81 97 03/12/21 23:25 18 97 03/12/21 22:25 16 96 03/12/21 21:25 16 96
[2021-03-13] MEDS: PRENATAL VITAMIN 1 TAB PO SCH (09:22)
[2021-03-13] MEDS: SIMETHICONE 80 MG CHEW PO SCH ×5 (09:22→20:23)
[2021-03-13] MEDS: FERROUS SULFATE 325 MG TAB PO SCH (09:22)
[2021-03-13] MEDS: DOCUSATE SODIUM 100 MG CAP PO SCH ×2 (09:22→20:23)
[2021-03-13] MEDS: oxyCODONE/ACETAMINOPHEN 5mg/325mg TAB PO PRN ×3 (09:23→20:23)
[2021-03-13] MEDS: IBUPROFEN 600 MG TAB PO PRN ×3 (09:23→20:23)
[2021-03-13] MEDS ORDERED: MEASLES, MUMPS & RUBELLA VIRUS VIAL SQ ONE (13:45)
[2021-03-13] MEDS ORDERED: bisacodyL 5 MG TABEC PO SCH (20:00)
[2021-03-14] MEDS: IBUPROFEN 600 MG TAB PO PRN ×3 (00:10→08:22)
[2021-03-14] MEDS: oxyCODONE/ACETAMINOPHEN 5mg/325mg TAB PO PRN ×3 (00:10→08:22)
[2021-03-14 06:07] LABS: Hematocrit (blood only) 30.7 % (37-47); Hemoglobin 10.3 g/dL (12.0-16.0)
--- NOTE | 2021-03-14 07:33 | Obstetrical Progress Note ---
Date of Service March 14, 2021 Subjective Ambulation: ambulating normally Voiding: no voiding problems Passing Gas:: Yes Diet Tolerance:: regular diet Lochia:: Small Feeding Type:: breast feeding incision c/d/i passing gas abdomen soft and non-tender no edema neg Mihai's for d/c today Physical Exam Constitutional WD/WN, vitals as above comfortable Results & Data ([place]) Vital Signs (Past 12 Hours) Vital Signs Temp Pulse Resp BP Pulse Ox 03/14/21 00:45 126/83 03/14/21 00:10 36.7 C 98 H 18 145/83 H 97 Laboratory Results 03/11/21 03/11/21 03/11/21 12:58 12:58 12:58 WBC 11.88 H RBC 4.18 L Hgb 12.5 Hct 37.2 MCV 89.0 MCH 29.9 MCHC 33.6 RDW Std Deviation 46.5 H RDW Coeff of Hoa 14.3 Plt Count 364 MPV 11.6 H Immature Gran % (Auto) Neut % (Auto) Lymph % (Auto) [place] % (Auto) Eos % (Auto) Baso % (Auto) Neut # (Auto) Lymph # (Auto) [place] # (Auto) Eos # (Auto) Baso # (Auto) Immature Gran # (Auto) Sodium 137 Potassium 4.1 Chloride 107 Carbon Dioxide 20 L Anion Gap 10.0 BUN 10 Creatinine 0.85 Est Cr Clr Drug Dosing 121.6 Est GFR ( Amer) 107.3 Est GFR (Non-Af Amer) 92.6 BUN/Creatinine Ratio 12.1 Glucose 92 Calcium 9.8 Total Bilirubin 0.3 Direct Bilirubin < 0.1 AST 21 ALT 21 Alkaline Phosphatase 172 H Total Protein 6.8 Albumin 2.6 L Globulin 4.2 H Albumin/Globulin Ratio 0.6 L Blood Type A Positive Antibody Screen NEGATIVE 03/13/21 03/14/21 05:47 06:00 WBC 12.63 H RBC 3.67 L Hgb 10.8 L 10.3 L Hct 33.5 L 30.7 L MCV 91.3 MCH 29.4 MCHC 32.2 RDW Std Deviation 47.9 H RDW Coeff of Hoa 14.4 Plt Count 248 MPV 11.2 H Immature Gran % (Auto) 0.3 Neut % (Auto) 80.4 Lymph % (Auto) 12.4 [place] % (Auto) 6.0 Eos % (Auto) 0.7 Baso % (Auto) 0.2 Neut # (Auto) 10.15 H Lymph # (Auto) 1.57 [place] # (Auto) 0.76 H Eos # (Auto) 0.09 Baso # (Auto) 0.02 Immature Gran # (Auto) 0.04 H Sodium Potassium Chloride Carbon Dioxide Anion Gap BUN Creatinine Est Cr Clr Drug Dosing Est GFR ( Amer) Est GFR (Non-Af Amer) BUN/Creatinine Ratio Glucose Calcium Total Bilirubin Direct Bilirubin AST ALT Alkaline Phosphatase Total Protein Albumin Globulin Albumin/Globulin Ratio Blood Type Antibody Screen
[2021-03-14] MEDS: SIMETHICONE 80 MG CHEW PO SCH (07:38)
[2021-03-14] MEDS: FERROUS SULFATE 325 MG TAB PO SCH (07:39)
[2021-03-14] MEDS: DOCUSATE SODIUM 100 MG CAP PO SCH (07:39)
[2021-03-14] MEDS: PRENATAL VITAMIN 1 TAB PO SCH (07:39)
[2021-03-14] MEDS ORDERED: bisacodyL 10 MG SUPP PR PRN (09:04)
--- NOTE | 2021-03-14 11:47 | Discharge Summary (DS) ---
DATE OF ADMISSION: 03/11/2021 DATE OF DISCHARGE: 03/14/2021 REASON FOR ADMISSION: The patient is a 31-year-old female admitted for induction of labor for gestat ional hypertension. She was found to be breech and a section was then planned. sec tion was done under spinal anesthesia without difficulty. A low transverse incision was made. The i ncision was adequate with delivery of a live female. Apgars were 8 and 9. There was a nuchal cord x 1. Hospital course was uncomplicated. Condition on discharge is stable. Regular diet on discharge. The patient was discharged home in sta ble condition on 03/14/2021. Job ID: [id number]
--- NOTE | 2021-03-24 07:59 | Operative Report (OR) ---
DATE OF SURGERY: 03/12/21 PREOPERATIVE DIAGNOSIS: Breech presentation, low transverse section. POSTOPERATIVE DIAGNOSIS: Breech presentation, low transverse section. SURGEON: Tj Bhatti MD. TOPOGRAPHICAL FIELD ASSISTANT: Hafsa Sanabria MD. COMPLICATIONS: None. FINDINGS: Live female, yannick breech, Apgars 8 and 9. ESTIMATED BLOOD LOSS: 500 mL. SPECIMENS: Cord blood and placenta. DRAINS: Valdivia catheter. ANESTHESIA: Spinal. CLINICAL HISTORY: The patient is a 31-year-old female, para 1-0-0-1, yannick breech presentation, pres ents for repeat section. The patient refused a trial of labor. Informed consent was obtain ed. Antibiotics were given preop and timeout was called prior to the start of procedure. DESCRIPTION OF PROCEDURE: Under satisfactory spinal anesthesia, the patient was prepped and draped i n the usual sterile fashion. A low Pfannenstiel incision was then made entering into the abdominal c avity in successive layers without difficulty. Upon entering into the lower uterine segment, pickups with teeth and Metzenbaums were then used to develop a bladder flap. This was gently sharply dissec christianne down. A low segment incision was planned. The incision was widened in the AP diameter. Amnioti c sac was nicked and found to be clear. The was then delivered from the yannick breech presenta tion without difficulty. Apgars were 8 and 9, delivering a live female. There was a nuchal cord x1, reduced at the time of delivery. Delayed cord clamping was accomplished. After the cord was clamped and cut, baby handed to network systems operator present for delivery. Cord blood was obtained followed by spon taneous delivery of an intact placenta. Uterus was then exteriorized. Ring forceps were placed on both angles. Moist lap was used to grab t he uterus for retraction. Another ring was then used to dilate the cervix. The uterus was closed in a double layer closure with 0 Vicryl suture in a continuous interlocking fashion followed by a second imbricating suture. Tubes, ovaries bilaterally were found to be within normal limits. The contents of the pelvic cavity and abdominal cavity were irrigated to clear. The initial sponge, needle, and i nstrument count were found to be correct. The incision was dry. The uterus was then placed back int o the normal anatomical position. The lower uterine segment was once more inspected and no active bl eeding was noted. The fascia was then reapproximated from both ends using 0 Vicryl suture in a continuous fashion. Sub cuticular space was then irrigated. Bleeders were then cauterized with the Bovie. The subcuticular space was then closed with 3-0 plain suture. The subcuticular layer was irrigated and the skin was t hen reapproximated with 4-0 Monocryl suture. Steri-Strips and Telfa dressing were applied. Clear ur ine was noted from the Valdivia. Estimated blood loss 500 mL. Final sponge, needle and instrument count s were found to be correct. The patient was then placed on a stretcher supine, taken to recovery gabriele m in stable condition. Please note, Dr. Arreguin was present for the delivery. She provided necessary assistance for retractio n and exposure, helped with delivery and helped with closure and helped with suctioning and retractio n. Job ID: [id number]
== END 2021-03-14 11:10 | disposition home or self-care (01) | DRG 788 ==
LOC: 4S1 12:43 → 4S2 03-12 15:32